=== PATIENT | male | born 1960 | race Caucasian/White ===

== ENCOUNTER 2017-01-20 12:54 | Day surgery (SDC) | payer OTHER ==
[~2017-01-20] VITALS: Ht 177.8 cm; Wt 93.2 kg
[~2017-01-20 12:54] MED LIST: ASPI81TA3 PO; CHOL100062 PO; HYDR12.58 PO; QUIN20TA23 PO; SIMV-39 PO
[2017-01-20 13:53] VITALS: Ht 177.8 cm; Wt 93.2 kg
[2017-01-20] MEDS ORDERED: ATOR40TA68 PO (14:03)
[2017-01-20 14:47] VITALS: BP 151/84; PULSE 81; RESP 14
[2017-01-20] MEDS ORDERED: PROPOFOL 20 ML ONE (14:56)
[2017-01-20] MEDS ORDERED: FENTAnyl 50 MCG/ML VIAL ONE (14:56)
--- NOTE | 2017-01-20 15:17 | OPPN ---
Date/Time of Note Date/Time of Note DATE: 01/20/17 TIME: 15:14 Proc Note GI Procedure Date 01/20/17 Indication: other (Dyspepsia) Pre-procedure Diagnosis Dyspepsia Post-procedure Diagnosis Impression: Grade I/IV esophageal varices. No intervention Moderate distal esophagitis. Severe gastritis. Rule out H. pylori infection. Biopsies obtained Otherwise normal EGD Plan: PPI therapy Review pathology Follow-up as previously scheduled . Procedure Performed: Endoscopy (With biopsies) Surgeon MACKENZIE PERRY MD See signature line Medical Appointment Clerk none Anesthesia Type: MAC Anesthesiologist: XUAN GUZMAN MD Tourniquet Time none EBL none Transfusion required none Biopsy 1: Body and antrum of the stomach/Rule out H. pylori infection Grafts/Implants none Tubes/Drains none Complication(s) none Disposition: home Procedure Description Preoperative Diagnosis: After informed consent, with the patient/relatives understanding the procedure, its indications, potential risks and complications, including but not limited to : allergic reaction, bleeding, perforation or infection, and after all pertinent questions were answered to the patients satisfaction, the patient/ relatives signed witnessed informed consent. Following this, premedication was administered slowly IV push under careful cardiovascular and respiratory monitoring with pulse oximetry, automatic blood pressure, and monitoring engineer. Once the sedative effect was achieved the patient was place in the left lateral decubitus, the panendoscope was introduced and advanced under visual control. Careful examination of the upper gastrointestinal tract, both on insertion as well as withdrawal of the instrument disclosing the following findings: ESOPHAGUS: the mucosa of the entire esophagus was carefully examined and showed the following findings: There there are grade I/IV esophageal varices. No intervention required. There is significant erythema and edema of the mucosa at the e.g. junction. Otherwise the mucosa appears within normal limits. There is no evidence of varices, neoplasm, or stricture. No Hiatal Hernia identified. STOMACH: Upon entrance to the stomach air was insufflated, the gastric myrick distended normally. The mucosa of the fundus, body and antrum of the stomach was carefully examined both head-on and on retroflexion, and showed the following findings: There is severe erythema edema and submucosal hemorrhagic changes in the entire stomach. The possibility of portal hypertensive gastropathy cannot be excluded. Biopsies were obtained to rule out H. pylori infection. Otherwise the mucosa appears within normal limits with no abnormalities. There is no evidence of ulcers or neoplasm. PYLORUS: The pylorus was carefully examined and showed the following findings: the pylorus appears patent and within normal limits, with no evidence of gastric outlet obstruction. DUODENUM: The duodenal mucosa was carefully examined in the duodenal bulb as well as the second portion of the duodenum and showed the following findings: the mucosa appears unremarkable with no evidence of duodenitis, ulcer or neoplasm. Copies To: CC: MACKENZIE PERRY MD, MORDO MD Jan 20, 2017 15:17
== END 2017-01-21 08:42 | disposition home or self-care (01) ==
LOC: GIL 12:54
PROVIDERS: ATTEND Internal Medicine Gastroenterology
DX: I85.00 Esophageal varices without bleeding (principal); K20.8 Other esophagitis; I10 Essential (primary) hypertension; E78.5 Hyperlipidemia, unspecified
CPT/HCPCS: 43239; 88305; 88312; J3010

== ENCOUNTER 2018-01-29 12:46 | Day surgery (SDC) | END 2018-01-29 16:14 | disposition home or self-care (01) ==